=== PATIENT | female | born 1980 | race Caucasian/White ===

== ENCOUNTER 2021-03-28 09:43 | Emergency (ER) | payer BC ==
[~2021-03-28] VITALS: Ht 154.9 cm; Wt 59.4 kg
[2021-03-28] MEDS ORDERED: PROG100 PO (10:04)
[2021-03-28] MEDS ORDERED: Effexor Xr150 MG PO (10:04)
[2021-03-28 10:23] LABS: BASOPHILS ABSOLUTE AUTO 0.08 K/mm3 (0.00-0.23); BASOPHILS PERCENT AUTO 1 % (0-2); EOSINOPHILS PERCENT AUTO 0 % (0-6); Hematocrit 38.2 % (33.0-51.0); Hemoglobin 12.5 g/dL (11.5-16.0); IMMATURE GRAN ABSOLUTE AUTO 0.01 K/mm3 (0.00-0.10); IMMATURE GRAN PERCENT AUTO 0 % (0-1); LYMPHOCYTES ABSOLUTE AUTO 1.38 K/mm3 (0.84-5.20); LYMPHOCYTES PERCENT AUTO 23 % (21-46); MONOCYTES ABSOLUTE AUTO 0.56 K/mm3 (0.16-1.47); MONOCYTES PERCENT AUTO 10 % (4-13); Mean Corpuscular HGB 31.1 pg (26.0-34.0); Mean Corpuscular HGB Conc 32.7 g/dL (31.5-36.5); Mean Corpuscular Volume 95 fL (80-100); Mean Platelet Volume 8.6 fL (9.1-12.4); NEUTROPHILS ABSOLUTE AUTO 3.88 K/mm3 (1.96-9.15); NEUTROPHILS PERCENT AUTO 66 % (41-73); Platelet Count 271 K/mm3 (150-400); RDW Coefficient Variation 13.4 % (11.7-14.2); RDW Standard Deviation 47.8 fL (35.1-46.3); Red Blood Cell Count 4.02 M/mm3 (3.80-5.20); White Blood Cell Count 5.91 K/mm3 (4.00-11.30)
[2021-03-28 10:43] LABS: Alanine Aminotransfer (ALT/SGP 24 U/L (12-78); Albumin, Blood 3.3 g/dL (3.4-5.0); Albumin/Globulin Ratio 0.8 (0.8-1.8); Alk Phos 72 U/L (50-136); Anion Gap 1 mmol/L (6-16); Aspartate Aminotrans (AST/SGOT 17 U/L (12-37); Bilirubin, Total 0.3 mg/dL (0.1-1.0); Blood Urea Nitrogen 9 mg/dL (8-24); Bun/Creatinine Ratio 12.3 (12.0-20.0); CO2, Blood 32 mmol/L (21-32); Calcium, Blood 8.7 mg/dL (8.5-10.1); Chloride, Blood 105 mmol/L (98-108); Creatinine, Blood 0.73 mg/dL (0.40-1.00); Globulin, Blood 3.9 g/dL (2.2-4.0); Glomerular Filtration Rate >60 (60-); Glucose, Blood 91 mg/dL (70-99); Potassium, Blood 3.9 mmol/L (3.5-5.5); Sodium, Blood 138 mmol/L (136-145); Total Protein, Blood 7.2 g/dL (6.4-8.2)
[2021-03-28] MEDS ORDERED: TAMS.4ER PO (11:58)
[2021-03-28] MEDS ORDERED: DOCU100 PO (11:58)
== END 2021-03-28 12:16 | disposition home or self-care (01) ==
LOC: ER 09:43
PROVIDERS: Emergency Medicine
DX: K59.00 Constipation, unspecified (principal); Z88.2 Allergy status to sulfonamides
CPT/HCPCS: 74177; 80053; 83690; 85025; 96374; 96375; 99284-25; J2405; J3010; Q9967

== ENCOUNTER → 2021-09-28 | Outpatient (CLI) | payer OTHER ==
[~2021-09-28] MED LIST: DOCU100 PO; Effexor Xr150 MG PO; PROG100 PO; TAMS.4ER PO
== END ==
LOC: LAB SHORT 11:57 → LAB 11:57
DX: R30.0 Dysuria (principal)
CPT/HCPCS: 87086